=== PATIENT | female | born 1995 | race Caucasian/White ===

== ENCOUNTER → 2021-08-17 | Outpatient (REF) | payer BC, OTHER ==
[2021-08-17 17:55] LABS: PROGESTERONE 19.21 NG/ML
== END ==
LOC: M LABDRWAD 16:28
PROVIDERS: ATTEND Obstetrics & Gynecology
DX: O36.80X9 Pregnancy with inconclusive fetal viability, other fetus (principal); Z36.89 Encounter for other specified antenatal screening; Z3A.00 Weeks of gestation of pregnancy not specified

== ENCOUNTER → 2021-08-19 | Outpatient (REF) | payer BC | LOC: M LABDRWAD 16:01 | PROVIDERS: ATTEND Obstetrics & Gynecology | DX: O36.80X9 Pregnancy with inconclusive fetal viability, other fetus (principal) ==

== ENCOUNTER → 2022-12-23 | Outpatient (CLI) | payer MEDICAID ==
[2022-12-23 17:35] LABS: BASO % 0.2 % (0.0-1.0); EOS % 0.3 % (0.0-3.0); HEMATOCRIT 41.6 % (36.0-47.0); HEMOGLOBIN 13.6 g/dl (12.0-15.5); LYMPH # 1.6 10^3/uL (1.5-5.0); MEAN CORPUSCULAR HEMOGLOBIN 28.6 pg (27.0-33.0); MEAN CORPUSCULAR HGB CONC 32.7 g/dl (32.0-36.5); MEAN CORPUSCULAR VOLUME 87.6 fl (80.0-96.0); MONO % 10.2 % (2.0-8.0); NEUTROPHILS # 7.3 10^3/uL (1.5-8.5); NEUTROPHILS % 72.9 % (36.0-66.0); PLATELET COUNT, AUTOMATED 306 10^3/uL (150-450); RED BLOOD COUNT 4.75 10^6/uL (4.00-5.40)
[2022-12-23 17:42] LABS: ALKALINE PHOSPHATASE 74 U/L (46-116); ALT/SGPT 19 U/L (7.0-40); AST/SGOT 13 U/L (<34); BILIRUBIN,TOTAL 0.7 MG/DL (0.3-1.2); BLOOD UREA NITROGEN 7 MG/DL (9-23); CALCIUM LEVEL 8.9 MG/DL (8.5-10.1); CARBON DIOXIDE LEVEL 26 MMOL/L (20-31); CHLORIDE LEVEL 103 MMOL/L (98-107); CHOLESTEROL LEVEL 157 MG/DL (<200); CHOLESTEROL RISK RATIO 3.09 (<5); CREATININE FOR GFR 0.69 MG/DL (0.55-1.30); GLOMERULAR FILTRATION RATE > 60.0 (>60); GLUCOSE, FASTING 78 MG/DL (60-100); HDL CHOLESTEROL 50.8 MG/DL (>40); LDL CHOLESTEROL 85.8 MG/DL (<100); MAGNESIUM LEVEL 1.9 MG/DL (1.8-2.4); NON-HDL-C 106.2 MG/DL; POTASSIUM SERUM 4.2 MMOL/L (3.5-5.1); SODIUM LEVEL 137 MMOL/L (136-145); TRIGLYCERIDES LEVEL 102 MG/DL (<150)
[2022-12-23 17:44] LABS: THYROID STIMULATING HORMONE 0.826 uIU/ML (0.55-4.78)
[2022-12-23 17:45] LABS: FREE T4 1.06 NG/DL (0.89-1.76); TOTAL 25(OH) VITAMIN D 32.9 NG/ML (20.0-100.0); VITAMIN B12 LEVEL 585 PG/ML (211-911)
== END ==
LOC: M PLALAB 15:10
PROVIDERS: ATTEND Physician Assistant
DX: Z00.00 Encounter for general adult medical examination without abnormal findings (principal); R00.2 Palpitations; R00.0 Tachycardia, unspecified; F90.9 Attention-deficit hyperactivity disorder, unspecified type; F41.9 Anxiety disorder, unspecified

== ENCOUNTER → 2024-04-11 | Outpatient (REF) | payer OTHER ==
[2024-04-11 12:58] LABS: APPEARANCE, URINE MANUAL CLEAR (CLEAR); BILIRUBIN, URINE MANUAL NEGATIVE (NEGATIVE); BLOOD URINE MANUAL NEGATIVE (NEGATIVE); COLOR, URINE MANUAL YELLOW (YELLOW); GLUCOSE, URINE (UA) MANUAL NEGATIVE (NEGATIVE); KETONE, URINE MANUAL NEGATIVE (NEGATIVE); LEUKOCYTE ESTERASE, URINE MAN NEGATIVE (NEGATIVE); NITRITE, URINE MANUAL NEGATIVE (NEGATIVE); PROTEIN, URINE MANUAL NEGATIVE (NEGATIVE); UROBILINOGEN, URINE MANUAL NORMAL (NORMAL)
== END ==
LOC: M LAB REF 12:28
PROVIDERS: ATTEND Physician Assistant
DX: N39.0 Urinary tract infection, site not specified (principal)

== ENCOUNTER 2024-05-25 08:32 | Emergency (ER) | payer OTHER ==
[~2024-05-25] VITALS: Ht 162.6 cm; Wt 61.4 kg
[2024-05-25] MEDS ORDERED: ALPR0.5T3 (08:38)
[2024-05-25] MEDS ORDERED: FLOM0.4C39 PO (08:38)
[2024-05-25] MEDS ORDERED: PERCOCET PO (08:38)
[2024-05-25] MEDS ORDERED: NORE1TAB73 (08:38)
[2024-05-25 09:30] LABS: BASO % 0.1 % (0.0-1.0); HEMATOCRIT 41.3 % (36.0-47.0); HEMOGLOBIN 13.8 g/dl (12.0-15.5); LYMPH # 0.7 10^3/uL (1.5-5.0); LYMPH % 4.8 % (24.0-44.0); MEAN CORPUSCULAR HEMOGLOBIN 29.3 pg (27.0-33.0); MEAN CORPUSCULAR HGB CONC 33.4 g/dl (32.0-36.5); MEAN CORPUSCULAR VOLUME 87.7 fl (80.0-96.0); MONO # 1.2 10^3/uL (0.0-0.8); MONO % 8.4 % (2.0-8.0); NEUTROPHILS # 12.7 10^3/uL (1.5-8.5); NEUTROPHILS % 86.2 % (36.0-66.0); PLATELET COUNT, AUTOMATED 270 10^3/uL (150-450); RED BLOOD COUNT 4.71 10^6/uL (4.00-5.40); WHITE BLOOD COUNT 14.8 10^3/uL (4.0-10.0)
[2024-05-25] MEDS: KETOROLAC 30 MG/ML 1ML VIAL IV ONE (09:42)
[2024-05-25] MEDS: ONDANSETRON 4MG 2ML VIAL IV ONE (09:42)
[2024-05-25 10:19] LABS: ALBUMIN 3.8 G/DL (3.2-5.2); ALKALINE PHOSPHATASE 62 U/L (35-104); ALT/SGPT 17 U/L (7.0-40); AST/SGOT 13 U/L (<34); BILIRUBIN,DIRECT 0.4 MG/DL (<0.4); BILIRUBIN,TOTAL 1.2 MG/DL (0.3-1.2); BLOOD UREA NITROGEN 12 MG/DL (9-23); CALCIUM LEVEL 9.2 MG/DL (8.5-10.1); CARBON DIOXIDE LEVEL 23 MMOL/L (20-31); CHLORIDE LEVEL 104 MMOL/L (98-107); GLOMERULAR FILTRATION RATE > 60.0 (>60); GLUCOSE, FASTING 106 MG/DL (60-100); POTASSIUM SERUM 3.7 MMOL/L (3.5-5.1); SODIUM LEVEL 136 MMOL/L (136-145); TOTAL PROTEIN 6.9 G/DL (5.7-8.2)
[2024-05-25 10:22] LABS: HCG, SERUM QUALITATIVE NEGATIVE (NEGATIVE)
[2024-05-25] MEDS: NS 500 ML IV ONE (11:42)
[2024-05-25 12:36] LABS: KETONE, URINE AUTO RFX 1+ mg/dL (NEGATIVE); MUCUS, URINE RFX SMALL (NEGATIVE); RBC, URINE AUTO RFX 15 /HPF (0-3); SQUAM EPITHELIAL CELL UR AURFX 15 /HPF (0-6)
[2024-05-25 12:37] LABS: LEUKOCYTE ESTERASE UR AUTO RFX 3+ (NEGATIVE); NITRITE, URINE AUTO RFX POSITIVE (NEGATIVE); WBC, URINE AUTO RFX 87 /HPF (0-3)
[2024-05-25] MEDS: cefTRIAXone SOD 1 GM in DEXTROSE 5% (D5W) ADV/MINI-BAG 50 ML IV ONE (13:00)
[2024-05-25] MEDS ORDERED: ONDA-282 PO (13:41)
[2024-05-25] MEDS ORDERED: CEFD300CAP PO (13:41)
[2024-05-25] MEDS ORDERED: IBUP-1022 PO (13:41)
[2024-05-25] MEDS: ACETAMINOPHEN 325 MG TAB PO ONE (13:51)
[2024-05-25 14:15] VITALS: BP 104/63; TEMP 102.3; O2SAT 98
[2024-05-28] MEDS ORDERED: FOSF3PAC2 PO (09:25)
== END 2024-05-25 14:18 | disposition home or self-care (01) ==
LOC: M ED 08:32 → EEVIPCON 08:32 → M ED 14:18
DX: N10 Acute pyelonephritis (principal); Z87.442 Personal history of urinary calculi; Z79.899 Other long term (current) drug therapy; Z88.2 Allergy status to sulfonamides
CPT/HCPCS: 74176; 80048; 80076; 81001; 84703; 85025; 87040; 87088; 87184; 87186; 96361; 96365; 96375; 99284; J0696; J1885; J2405

== ENCOUNTER → 2025-01-17 | Outpatient (CLI) | payer OTHER ==
[~2025-01-17] MED LIST: ALPR0.5T3; CEFD300CAP PO; FOSF3PAC2 PO; IBUP-1022 PO; NORE1TAB73; ONDA-282 PO; PERCOCET PO; TAMS-18 PO
[2025-01-17 14:01] LABS: PLATELET COUNT, AUTOMATED 286 10^3/uL (150-450)
[2025-01-17 14:34] LABS: CHOLESTEROL LEVEL 189 MG/DL (<200); CHOLESTEROL RISK RATIO 2.80 (<5); LDL CHOLESTEROL 107.0 MG/DL (<100); NON-HDL-C 121.6 MG/DL; TRIGLYCERIDES LEVEL 73 MG/DL (<150)
[2025-01-17 14:35] LABS: FREE T4 1.25 NG/DL (0.89-1.76); IRON (FE) 87 UG/DL (50-170)
[2025-01-17 14:37] LABS: TOTAL 25(OH) VITAMIN D 47.3 NG/ML (20.0-100.0); VITAMIN B12 LEVEL 805 PG/ML (211-911)
[2025-01-17 15:06] LABS: PERCENT SATURATION 26.7 % (13.2-45.0)
== END ==
LOC: M PLALAB 12:13
PROVIDERS: ATTEND Nurse Practitioner Family
DX: F41.9 Anxiety disorder, unspecified (principal); F90.9 Attention-deficit hyperactivity disorder, unspecified type; Z13.220 Encounter for screening for lipoid disorders